=== PATIENT | female | born 1955 | race Caucasian/White ===

== ENCOUNTER 2020-12-25 08:25 | Day surgery (SDC) | payer OTHER ==
--- NOTE | 2020-12-25 07:52 | HP ---
DATE OF SURGERY: 12/25/2020 HISTORY OF PRESENT ILLNESS: The patient is a 65 year-old with last colonoscopy back in 2013. No bloody stools. No change in bowel movements. No pain. Family history negative for colon cancer. Father had some sort of unknown colon problems but she does not think it is cancer. She is need of follow up screening colonoscopy. PAST MEDICAL HISTORY: Hypothyroidism, hypertension, hyperlipidemia. PAST SURGICAL HISTORY: Appendectomy. Hysterectomy. Lysis of adhesions. MEDICATIONS: Levothyroxine, lisinopril, Effexor, Simvastatin, mirtazapine, [place]. ALLERGIES: SULFA. PENICILLIN. KEFLEX. FAMILY HISTORY: Heart disease. Chronic obstructive pulmonary disease. SOCIAL HISTORY: No smoking. No alcohol abuse. REVIEW OF SYSTEMS: Fourteen systems reviewed. No chest pain or palpitations. Other systems negative or noncontributory as above and per preadmission questionnaire. PHYSICAL EXAMINATION: GENERAL: No acute distress. HEENT: Sclerae nonicteric. NECK: No JVD. CHEST: Equal excursion, nonlabored breathing. CVS: Regular rate and rhythm. ABDOMEN: Soft. No peritoneal signs. EXTREMITIES: No significant edema. NEURO: Alert, oriented, moving extremities symmetrically. RECTAL: Deferred timed to endoscopy exam. PSYCH: Appropriate mood and affect. IMPRESSION: Need for follow up screening colonoscopy. I feel she is a candidate. Risks and benefits explained in detail but not limited to bleeding or infection, risk of bowel injury or perforation possibly requiring open procedure, risk of missed or nondiagnosis or incomplete exam possibly requiring barium enema, other studies or procedures, general risk of anesthesia or sedation, risk of bowel prep but not limited to. Consent obtained, will proceed with follow up colonoscopy.
[2020-12-25] MEDS ORDERED: Versed 2 MG/2 ML Injection IV ONE (09:06)
[2020-12-25] MEDS ORDERED: Versed 2 MG/2 ML Injection ONE (09:08)
[2020-12-25] MEDS ORDERED: Lactated Ringers 1,000 ML IV ONE (09:08)
[2020-12-25] MEDS ORDERED: Lactated Ringers 1,000 ML IV SCH (09:30)
[2020-12-25] MEDS ORDERED: DIPRIVAN 200 MG/20 ML IV ONE ×2 (10:47→11:05)
[2020-12-25 12:02] VITALS: BP 121/74; PULSE 70; O2SAT 99
--- NOTE | 2020-12-26 10:11 | OP ---
SURGERY DATE/TIME: 12/25/2020 1053 PREOPERATIVE DIAGNOSIS: Prior history of polyp, need for follow up screening colonoscopy. POSTOPERATIVE DIAGNOSES: 1) Polyps, diverticulosis. 2) Fair bowel prep. 3) ASA Class II. 4) Withdrawal time approximately 8 minutes. PROCEDURES: 1) Colonoscopy to cecum 2) Hot snare and hot biopsy piecemeal removal 3 to 4 mm polyp proximal ascending colon. 3) Hot biopsy removal of small early polyp versus hyperplastic lesion rectosigmoid colon. SURGEON: Dr. Vincent Ulrich. ANESTHESIA: MAC. ESTIMATED BLOOD LOSS: Minimal. INDICATIONS: As noted above. Risks and benefits explained in detail but not limited to and consent obtained. DESCRIPTION OF PROCEDURE AND FINDINGS: The patient is taken to the operating room. MAC anesthesia introduced. After official time out and no disagreement with planned procedure, digital rectal exam did not reveal any rectal masses. Video colonoscope inserted and passed up through the tortuous sigmoid, descending, transverse and ascending colon around to the cecum. Appendiceal orifice and valve well visualized, photo documented. There was a 3 to 4 mm polyp just on the ascending colon side of this area in proximal ascending colon. Initially applying the hot snare however the snare did not seem to position well therefore it was removed in piecemeal fashion with hot biopsy forceps with brief bursts of cautery. The base is viable and appeared to have adequate hemostasis. The scope is slowly and carefully withdrawn. Prep overall was fair with some areas of liquidy semi-solid stool that is suctioned irrigated as clear as possible slightly limiting exam for very small lesions. Otherwise the patient did have some mild diverticulosis in the left colon, did have a small early polyp versus hyperplastic lesion in the rectosigmoid colon removed with hot biopsy forceps with brief bursts of cautery. Good hemostasis noted. Otherwise no signs of any other large polyps, masses or obstructing lesions. Findings discussed with the family over the phone. I will see her back in the office next week to go over the path results. If the path remains benign, likely would recommend follow up in three years given the piecemeal removal of the large polyp in the ascending colon.
== END 2020-12-25 11:55 | disposition home or self-care (01) ==
LOC: SDC 08:25
PROVIDERS: ATTEND Surgery
DX: Z09 Encounter for follow-up examination after completed treatment for conditions other than malignant neoplasm (principal); Z86.010 Personal history of colon polyps; K57.30 Diverticulosis of large intestine without perforation or abscess without bleeding; D12.2 Benign neoplasm of ascending colon
CPT/HCPCS: J2250; J2704